=== PATIENT | female | born 1945 | race Caucasian/White ===

== ENCOUNTER → 2016-09-10 | Outpatient (CLI) | payer MEDICARE, OTHER ==
[~2016-09-10] MED LIST: AMLODIPINE BES10 MG PO; BACLOFEN 10MG T10 MG PO; FOLIC ACID1 MG PO; GABAPENTIN300 M1 PO; HYDROCHLOROTHIA25 M1 PO; METHOTREXATE 22.5 MG PO; OMEPRAZOLE20 MG PO; PRAVASTATIN SOD80 MG PO; PREDNISONE 5MG.5 MG PO
--- NOTE | 2016-09-10 10:46 | RADIOLOGY REPORT PS360 ---
US RUQ-(ABD LTD)1ORGAN/QUAD/FU HISTORY: ELEVATED BILIRUBIN ORDERING PHYSICIAN: Andrei Jang MD PATIENT AGE: 70 years COMPARISON: None FINDINGS: PANCREAS: Unremarkable. No obvious mass or abnormal fluid collection. No ductal dilatation LIVER: Increased echogenicity of the liver with poor through transmission of sound consistent with hepatic steatosis. Common bile duct is normal at 5 mm. RIGHT KIDNEY: Unremarkable. Normal size and echogenicity. No hydronephrosis GALLBLADDER: No gallstones, gallbladder wall thickening, pericholecystic fluid, or biliary dilatation. IMPRESSION: 1. Hepatic steatosis. 2. Otherwise negative right upper quadrant ultrasound
== END ==
LOC: RAD 09:53
DX: R82.2 Biliuria (principal); R17 Unspecified jaundice